=== PATIENT | male | born 1965 | race Caucasian/White ===

== ENCOUNTER → 2016-07-30 | Outpatient (REF) | payer OTHER | LOC: M SFHCLACO 07:59 | PROVIDERS: ATTEND Physician Assistant | DX: R73.9 Hyperglycemia, unspecified (principal) ==

== ENCOUNTER 2016-08-15 17:14 | Emergency (ER) | payer OTHER ==
[2016-08-15] MEDS ORDERED: ONDANSETRON 4 MG ORAL DISINTEGRATING TAB (S0181) As Ordered ONE (18:17)
[2016-08-15] MEDS ORDERED: AUGMENTIN 875 MG TAB As Ordered ONE (18:17)
[2016-08-15] MEDS ORDERED: LORATADINE 10 MG TAB As Ordered ONE (18:18)
[2016-08-15] MEDS ORDERED: OXYMETAZOLINE NASAL SPRAY (AFRIN) As Ordered ONE (18:18)
--- NOTE | 2016-08-15 18:54 | EDDOCDS ---
Nurse's Notes [facility] Name: Brennan Cruz Age: 51 yrs Sex: Male : 1965 Arrival Date: 08/15/2016 Time: 17:14 Bed PR Private MD: Megan Hamm PA-C Diagnosis: Acute sinusitis;Acute serous otitis media, bilateral Presentation: 08/15 17:29 Presenting complaint: states: pt has been c/o dizziness with eyes open since 1529. ead Also states pt has been c/o ear pain all week. Pt holding head and keeping eyes closed in triage. Adult Sepsis Screening: The patient does not have new or worsening altered mentation. Patient's respiratory rate is less than 22. Systolic blood pressure is greater than 100. Patient has a qSOFA score of 0- Negative Sepsis Screen. Suicide/Homicide risk assessment- the patient denies having any suicidal and/or homicidal ideations and does not present with any other emotional, behavioral or mental health complaints. Status: Patient is not a director of cardiopulmonary services or dependent. Transition of care: patient was not received from another setting of care. 17:29 Acuity: POOJA Level 3 ead 17:29 Method Of Arrival: Wheelchair ead Triage Assessment: 17:34 General: Appears in no apparent distress, uncomfortable, Behavior is cooperative. Pain: ead Denies pain. HIV screening NA for this visit Offered previously. Neurological: Reports dizziness. EENT: Reports pain in right ear and left ear. Derm: Skin is pink, warm & dry. 17:34 Cardiovascular: Chest pain is denied. Respiratory: Denies shortness of breath. ead Historical: - Allergies: no known allergies; - Home Meds: 1. losartan 50 mg oral tab 1.5 tabs once daily 2. Cardizem 240 mg oral tab once daily 3. Fish Oil 1,000 mg oral cap twice a day 4. Albuterol Inhl as needed 5. omeprazole 20 mg Oral cpDR once daily 6. Drisdol 50,000 unit Oral cap every other week 7. Flonase Allergy Relief 50 mcg/actuation nasal spsn once daily 8. Tylenol 325 mg Oral tab 2 tabs as needed 9. Vitamin C 500 mg Oral TbER daily 10. turmeric (bulk) miscellaneous daily - PMHx: Hypertension; hyperlipidemia; exercise induced asthma; esophageal reflux; mild depressive disorder; Osteoarthritis; insomnia; - PSHx: Carpal Tunnel Repair; - Social history: Smoking status: Patient states was never smoker of tobacco. No barriers to communication noted, The patient speaks fluent Hebrew, Speaks appropriately for age. - Family history: Not pertinent. - : The pt / caregiver states he / she is not on anticoagulants. Home medication list is obtained from family members. - Exposure Risk Screening:: None identified. Screenin:25 Screening information is obtained from the patient. Fall risk: At risk due to ck1 dizziness. The following interventions are performed due to a positive Fall Risk Screen: Fall Risk is added to Special Handling on the patient Summary Screen. A Fall Risk Bracelet was applied to the patient. Side Rails are placed in the up position. A Call Medrano is given with instruction to call for help when getting out of bed. Fall Alert bracelet is placed on the patient. Assistance ADL's: requires no assistance with activities of daily living. Abuse/DV Screen: The patient / caregiver reports he/she is: not in a situation that causes fear, pain or injury. Nutritional screening: No deficits noted. Advance Directives: Currently, there is no health care proxy. home support is adequate. Assessment: 18:24 General: Appears in no apparent distress, comfortable, Behavior is appropriate for age, ck1 cooperative. Pain: Denies pain. Neurological: Level of Consciousness is awake, alert, Oriented to person, place, time, Reports dizziness. Cardiovascular: No deficits noted. Respiratory: Airway is patent Respiratory effort is even, unlabored, Respiratory pattern is regular, symmetrical. GI: No deficits noted. Derm: Skin is pink, warm & dry. Musculoskeletal: No deficits noted. 18:53 General: Appears in no apparent distress, comfortable, Behavior is appropriate for age, ck1 cooperative. Pain: Denies pain. Neurological: Level of Consciousness is awake, alert, obeys commands, Oriented to person, place, time, Denies dizziness. Cardiovascular: No deficits noted. Respiratory: Respiratory effort is unlabored, Respiratory pattern is regular, symmetrical. GI: No deficits noted. Derm: Skin is pink, warm & dry. Vital Signs: 17:16 BP 114 / 65; Pulse 68; Resp 18 S; Temp 96.5(O); Pulse Ox 95% on R/A; Weight 99.79 kg gr2 (R); Height 5 ft. 10 in. (177.80 cm) (R); Pain 2/10; 18:52 BP 135 / 83; Pulse 60; Resp 18; Temp 97.4(TE); Pulse Ox 98% on R/A; Pain 0/10; ck1 17:16 Body Mass Index 31.57 (99.79 kg, 177.80 cm) gr2 Vitals: 17:16 Log In Time: August 15, 2016 at 17:16. gr2 ED Course: 17:16 Patient visited by Melvin Marino. gr2 17:16 Megan Hamm is Private Physician. gr2 17:16 Patient moved to Waiting gr2 17:18 Patient visited by Melvin Marino. gr2 17:18 Patient moved to Pre RCE gr2 17:30 Triage Initiated ead 17:36 Patient moved to Triage 3 rs6 17:49 Patient visited by Awilda Chiu RN. ck1 18:02 Concha Lang PA-C is PHCP. ef1 18:02 Lisa Mobley MD is Attending Physician. ef1 18:02 Patient visited by Concha Lang PA-C. ef1 18:16 Patient moved to PR2 / 26 jrd 18:25 The patient / caregiver is instructed regarding the plan of care and ED course. ck1 18:25 No IV's were initiated during this patient's visit. No procedures done that require ck1 assistance. 18:38 Patient visited by Concha Lang PA-C. ef1 18:38 Megan Hamm is Referral Physician. ef1 Administered Medications: 18:23 Drug: Ondansetron ODT 4 mg [ondansetron 4 mg disintegrating tablet (1 tabs)] Route: PO; ck1 18:24 Drug: Oxymetazoline 2 sprays [oxymetazoline 0.05 % nasal spray (2 sprays)] Route: ck1 Intranasal; Site: both nares; 18:24 Drug: Loratadine 10 mg [loratadine 10 mg tablet (1 tabs)] Route: PO; ck1 18:24 Drug: Amoxicillin-Clavulanate 1 tabs [amoxicillin 875 mg-potassium clavulanate 125 mg ck1 tablet (1 tabs)] Route: PO; Order Results: There are currently no results for this order. Outcome: 18:38 Discharge ordered by Provider. ef1 18:52 Discharge Assessment: Patient awake, alert and oriented x 3. No cognitive and/or ck1 functional deficits noted. Patient verbalized understanding of disposition instructions. patient administered narcotics - no. The following High Risk Discharge criteria are identified: None. Discharged to home ambulatory, with significant other. Condition: stable. Discharge instructions given to patient, Instructed on discharge instructions, follow up and referral plans. medication usage, Demonstrated understanding of instructions, medications, Pt was receptive of discharge instructions/ teaching. Prescriptions given X 5. No special radiology studies were completed. Property :Personal belongings accompany Pt. 18:53 Patient left the ED. ck1 Signatures: Awilda Chiu,RN RN ck1 Concha Lang, PA-C PA-C ef1 Melvin Marino gr2 Amanda Miller,MAGGI RN Angel Rand, INSTRUCTOR BRIDGE INSTRUCTOR BRIDGE jrd Liana Seaman, INSTRUCTOR BRIDGE INSTRUCTOR BRIDGE rs6 [facility]
--- NOTE | 2016-08-15 18:54 | EDDOCDS ---
Physician Documentation [facility] Name: Brennan Cruz Age: 51 yrs Sex: Male : 1965 Arrival Date: 08/15/2016 Time: 17:14 Bed PR Private MD: Megan Hamm PA-C Disposition: 08/15/16 18:38 Discharged to Home/Self Care. Impression: Acute sinusitis, Acute serous otitis media, bilateral. - Condition is Stable. - Discharge Instructions: Otitis Media, Adult, Ccvk-[id number], Sinusitis, [id number]-[id number]. - Prescriptions for Augmentin 875- 125 mg Oral Tablet - take 1 tablet by ORAL route every 12 hours for 10 days; 20 tablet. Claritin 10 mg Oral Tablet - take 1 tablet by ORAL route once daily As needed; 30 tablet. Afrin (oxymetazoline) 0.05 % Nasal Aerosol, [place] - spray 2 spray by INTRANASAL route 2 times per day; 1 Container. ZOFRAN ODT 4 mg - dissolve 1 tablet by ORAL route 4 times per day As needed do not chew, do not swallow whole; 10 tablet. Mucinex 600 mg - take 1 tablet by ORAL route 2 times per day; 30 tablet. - Medication Reconciliation, Local Pharmacy Hours form. - Follow up: Megan Hamm; When: 1 - 2 days; Reason: Recheck today's complaints, Continuance of care. Follow up: Emergency Department; Reason: Worsening of conditions. - Problem is new. - Symptoms have improved. Historical: - Allergies: no known allergies; - Home Meds: 1. losartan 50 mg oral tab 1.5 tabs once daily 2. Cardizem 240 mg oral tab once daily 3. Fish Oil 1,000 mg oral cap twice a day 4. Albuterol Inhl as needed 5. omeprazole 20 mg Oral cpDR once daily 6. Drisdol 50,000 unit Oral cap every other week 7. Flonase Allergy Relief 50 mcg/actuation nasal spsn once daily 8. Tylenol 325 mg Oral tab 2 tabs as needed 9. Vitamin C 500 mg Oral TbER daily 10. turmeric (bulk) miscellaneous daily - PMHx: Hypertension; hyperlipidemia; exercise induced asthma; esophageal reflux; mild depressive disorder; Osteoarthritis; insomnia; - PSHx: Carpal Tunnel Repair; - Social history: Smoking status: Patient states was never smoker of tobacco. No barriers to communication noted, The patient speaks fluent Hebrew, Speaks appropriately for age. - Family history: Not pertinent. - : The pt / caregiver states he / she is not on anticoagulants. Home medication list is obtained from family members. - Exposure Risk Screening:: None identified. Vital Signs: 08/15 17:16 BP 114 / 65; Pulse 68; Resp 18 S; Temp 96.5(O); Pulse Ox 95% on R/A; Weight 99.79 kg / gr2 220 lbs (R); Height 5 ft. 10 in. (177.80 cm) (R); Pain 2/10; 18:52 BP 135 / 83; Pulse 60; Resp 18; Temp 97.4(TE); Pulse Ox 98% on R/A; Pain 0/10; ck1 17:16 Body Mass Index 31.57 (99.79 kg, 177.80 cm) gr2 MDM: 18:13 Oxymetazoline [place] 0.05 % 2 sprays Intranasal once; Both nostrils ordered. ef1 18:13 Loratadine 10 mg PO once ordered. ef1 18:13 Amoxicillin-Clavulanate 875 mg 1 tabs PO once ordered. ef1 18:16 Ondansetron ODT Oral Disintegrating Tablet 4 mg PO once ordered. ef1 Administered Medications: 18:23 Drug: Ondansetron ODT 4 mg [ondansetron 4 mg disintegrating tablet (1 tabs)] Route: PO; ck1 18:24 Drug: Oxymetazoline 2 sprays [oxymetazoline 0.05 % nasal spray (2 sprays)] Route: ck1 Intranasal; Site: both nares; 18:24 Drug: Loratadine 10 mg [loratadine 10 mg tablet (1 tabs)] Route: PO; ck1 18:24 Drug: Amoxicillin-Clavulanate 1 tabs [amoxicillin 875 mg-potassium clavulanate 125 mg ck1 tablet (1 tabs)] Route: PO; Signatures: Awilda ChiuRN RN ck1 Concha Lang PA-C PAOz ef1 Amanda Miller RN RN ead MTDD
--- NOTE | 2016-08-17 19:54 | EDDOCDS ---
Physician Documentation [facility] Name: Brennan Cruz Age: 51 yrs Sex: Male : 1965 Arrival Date: 08/15/2016 Time: 17:14 Bed PR Private MD: Megan Hamm PA-C Disposition: 08/15/16 18:38 Discharged to Home/Self Care. Impression: Acute sinusitis, Acute serous otitis media, bilateral. - Condition is Stable. - Discharge Instructions: Otitis Media, Adult, [id number], Sinusitis, Wusy-lx-[id number]. - Prescriptions for Augmentin 875- 125 mg Oral Tablet - take 1 tablet by ORAL route every 12 hours for 10 days; 20 tablet. Claritin 10 mg Oral Tablet - take 1 tablet by ORAL route once daily As needed; 30 tablet. Afrin (oxymetazoline) 0.05 % Nasal Aerosol, [place] - spray 2 spray by INTRANASAL route 2 times per day; 1 Container. ZOFRAN ODT 4 mg - dissolve 1 tablet by ORAL route 4 times per day As needed do not chew, do not swallow whole; 10 tablet. Mucinex 600 mg - take 1 tablet by ORAL route 2 times per day; 30 tablet. - Medication Reconciliation, Local Pharmacy Hours form. - Follow up: Megan Hamm; When: 1 - 2 days; Reason: Recheck today's complaints, Continuance of care. Follow up: Emergency Department; Reason: Worsening of conditions. - Problem is new. - Symptoms have improved. Historical: - Allergies: no known allergies; - Home Meds: 1. losartan 50 mg oral tab 1.5 tabs once daily 2. Cardizem 240 mg oral tab once daily 3. Fish Oil 1,000 mg oral cap twice a day 4. Albuterol Inhl as needed 5. omeprazole 20 mg Oral cpDR once daily 6. Drisdol 50,000 unit Oral cap every other week 7. Flonase Allergy Relief 50 mcg/actuation nasal spsn once daily 8. Tylenol 325 mg Oral tab 2 tabs as needed 9. Vitamin C 500 mg Oral TbER daily 10. turmeric (bulk) miscellaneous daily - PMHx: Hypertension; hyperlipidemia; exercise induced asthma; esophageal reflux; mild depressive disorder; Osteoarthritis; insomnia; - PSHx: Carpal Tunnel Repair; - Social history: Smoking status: Patient states was never smoker of tobacco. No barriers to communication noted, The patient speaks fluent Turkmen, Speaks appropriately for age. - Family history: Not pertinent. - : The pt / caregiver states he / she is not on anticoagulants. Home medication list is obtained from family members. - Exposure Risk Screening:: None identified. Vital Signs: 08/15 17:16 BP 114 / 65; Pulse 68; Resp 18 S; Temp 96.5(O); Pulse Ox 95% on R/A; Weight 99.79 kg / gr2 220 lbs (R); Height 5 ft. 10 in. (177.80 cm) (R); Pain 2/10; 18:52 BP 135 / 83; Pulse 60; Resp 18; Temp 97.4(TE); Pulse Ox 98% on R/A; Pain 0/10; ck1 17:16 Body Mass Index 31.57 (99.79 kg, 177.80 cm) gr2 MDM: 18:13 Oxymetazoline [place] 0.05 % 2 sprays Intranasal once; Both nostrils ordered. ef1 18:13 Loratadine 10 mg PO once ordered. ef1 18:13 Amoxicillin-Clavulanate 875 mg 1 tabs PO once ordered. ef1 18:16 Ondansetron ODT Oral Disintegrating Tablet 4 mg PO once ordered. ef1 08/16 10:42 T-Sheet-- Draft Copy was scanned into [employer] and attached to record. gb Administered Medications: 08/15 18:23 Drug: Ondansetron ODT 4 mg [ondansetron 4 mg disintegrating tablet (1 tabs)] Route: PO; ck1 18:24 Drug: Oxymetazoline 2 sprays [oxymetazoline 0.05 % nasal spray (2 sprays)] Route: ck1 Intranasal; Site: both nares; 18:24 Drug: Loratadine 10 mg [loratadine 10 mg tablet (1 tabs)] Route: PO; ck1 18:24 Drug: Amoxicillin-Clavulanate 1 tabs [amoxicillin 875 mg-potassium clavulanate 125 mg ck1 tablet (1 tabs)] Route: PO; Signatures: Adilene Fuchs, Reg Reg gb Awilda Chiu,MAGGI RN ck1 Concha Lang PA-C PAKaiserC ef1 Amanda Miller,RN RN ead The chart was reviewed and I authenticate all verbal orders and agree with the evaluation and treatment provided.Attachments: 08/16 10:42 T-Sheet-- Draft Copy gb Chart Complete MTDD
--- NOTE | 2016-08-17 19:54 | EDDOCDS ---
Nurse's Notes [facility] Name: Brennan Cruz Age: 51 yrs Sex: Male : 1965 Arrival Date: 08/15/2016 Time: 17:14 Bed PR Private MD: Megan Hamm PA-C Diagnosis: Acute sinusitis;Acute serous otitis media, bilateral Presentation: 08/15 17:29 Presenting complaint: states: pt has been c/o dizziness with eyes open since 1529. ead Also states pt has been c/o ear pain all week. Pt holding head and keeping eyes closed in triage. Adult Sepsis Screening: The patient does not have new or worsening altered mentation. Patient's respiratory rate is less than 22. Systolic blood pressure is greater than 100. Patient has a qSOFA score of 0- Negative Sepsis Screen. Suicide/Homicide risk assessment- the patient denies having any suicidal and/or homicidal ideations and does not present with any other emotional, behavioral or mental health complaints. Status: Patient is not a food service or dependent. Transition of care: patient was not received from another setting of care. 17:29 Acuity: POOJA Level 3 ead 17:29 Method Of Arrival: Wheelchair ead Triage Assessment: 17:34 General: Appears in no apparent distress, uncomfortable, Behavior is cooperative. Pain: ead Denies pain. HIV screening NA for this visit Offered previously. Neurological: Reports dizziness. EENT: Reports pain in right ear and left ear. Derm: Skin is pink, warm & dry. 17:34 Cardiovascular: Chest pain is denied. Respiratory: Denies shortness of breath. ead Historical: - Allergies: no known allergies; - Home Meds: 1. losartan 50 mg oral tab 1.5 tabs once daily 2. Cardizem 240 mg oral tab once daily 3. Fish Oil 1,000 mg oral cap twice a day 4. Albuterol Inhl as needed 5. omeprazole 20 mg Oral cpDR once daily 6. Drisdol 50,000 unit Oral cap every other week 7. Flonase Allergy Relief 50 mcg/actuation nasal spsn once daily 8. Tylenol 325 mg Oral tab 2 tabs as needed 9. Vitamin C 500 mg Oral TbER daily 10. turmeric (bulk) miscellaneous daily - PMHx: Hypertension; hyperlipidemia; exercise induced asthma; esophageal reflux; mild depressive disorder; Osteoarthritis; insomnia; - PSHx: Carpal Tunnel Repair; - Social history: Smoking status: Patient states was never smoker of tobacco. No barriers to communication noted, The patient speaks fluent Maori, Speaks appropriately for age. - Family history: Not pertinent. - : The pt / caregiver states he / she is not on anticoagulants. Home medication list is obtained from family members. - Exposure Risk Screening:: None identified. Screenin:25 Screening information is obtained from the patient. Fall risk: At risk due to ck1 dizziness. The following interventions are performed due to a positive Fall Risk Screen: Fall Risk is added to Special Handling on the patient Summary Screen. A Fall Risk Bracelet was applied to the patient. Side Rails are placed in the up position. A Call Medrano is given with instruction to call for help when getting out of bed. Fall Alert bracelet is placed on the patient. Assistance ADL's: requires no assistance with activities of daily living. Abuse/DV Screen: The patient / caregiver reports he/she is: not in a situation that causes fear, pain or injury. Nutritional screening: No deficits noted. Advance Directives: Currently, there is no health care proxy. home support is adequate. Assessment: 18:24 General: Appears in no apparent distress, comfortable, Behavior is appropriate for age, ck1 cooperative. Pain: Denies pain. Neurological: Level of Consciousness is awake, alert, Oriented to person, place, time, Reports dizziness. Cardiovascular: No deficits noted. Respiratory: Airway is patent Respiratory effort is even, unlabored, Respiratory pattern is regular, symmetrical. GI: No deficits noted. Derm: Skin is pink, warm & dry. Musculoskeletal: No deficits noted. 18:53 General: Appears in no apparent distress, comfortable, Behavior is appropriate for age, ck1 cooperative. Pain: Denies pain. Neurological: Level of Consciousness is awake, alert, obeys commands, Oriented to person, place, time, Denies dizziness. Cardiovascular: No deficits noted. Respiratory: Respiratory effort is unlabored, Respiratory pattern is regular, symmetrical. GI: No deficits noted. Derm: Skin is pink, warm & dry. Vital Signs: 17:16 BP 114 / 65; Pulse 68; Resp 18 S; Temp 96.5(O); Pulse Ox 95% on R/A; Weight 99.79 kg gr2 (R); Height 5 ft. 10 in. (177.80 cm) (R); Pain 2/10; 18:52 BP 135 / 83; Pulse 60; Resp 18; Temp 97.4(TE); Pulse Ox 98% on R/A; Pain 0/10; ck1 17:16 Body Mass Index 31.57 (99.79 kg, 177.80 cm) gr2 Vitals: 17:16 Log In Time: August 15, 2016 at 17:16. gr2 ED Course: 17:16 Patient visited by Melvin Marino. gr2 17:16 Megan Hamm is Private Physician. gr2 17:16 Patient moved to Waiting gr2 17:18 Patient visited by Melvin Marino. gr2 17:18 Patient moved to Pre RCE gr2 17:30 Triage Initiated ead 17:36 Patient moved to Triage 3 rs6 17:49 Patient visited by Awilda Chiu RN. ck1 18:02 Concha Lang PA-C is PHCP. ef1 18:02 Lisa Mobley MD is Attending Physician. ef1 18:02 Patient visited by Concha Lang PA-C. ef1 18:16 Patient moved to PR2 / 26 jrd 18:25 The patient / caregiver is instructed regarding the plan of care and ED course. ck1 18:25 No IV's were initiated during this patient's visit. No procedures done that require ck1 assistance. 18:38 Patient visited by Concha Lang PA-C. ef1 18:38 Megan Hmam is Referral Physician. ef1 08/16 10:42 T-Sheet-- Draft Copy was scanned into [employer] and attached to record. gb Administered Medications: 08/15 18:23 Drug: Ondansetron ODT 4 mg [ondansetron 4 mg disintegrating tablet (1 tabs)] Route: PO; ck1 18:24 Drug: Oxymetazoline 2 sprays [oxymetazoline 0.05 % nasal spray (2 sprays)] Route: ck1 Intranasal; Site: both nares; 18:24 Drug: Loratadine 10 mg [loratadine 10 mg tablet (1 tabs)] Route: PO; ck1 18:24 Drug: Amoxicillin-Clavulanate 1 tabs [amoxicillin 875 mg-potassium clavulanate 125 mg ck1 tablet (1 tabs)] Route: PO; Order Results: There are currently no results for this order. Outcome: 18:38 Discharge ordered by Provider. ef1 18:52 Discharge Assessment: Patient awake, alert and oriented x 3. No cognitive and/or ck1 functional deficits noted. Patient verbalized understanding of disposition instructions. patient administered narcotics - no. The following High Risk Discharge criteria are identified: None. Discharged to home ambulatory, with significant other. Condition: stable. Discharge instructions given to patient, Instructed on discharge instructions, follow up and referral plans. medication usage, Demonstrated understanding of instructions, medications, Pt was receptive of discharge instructions/ teaching. Prescriptions given X 5. No special radiology studies were completed. Property :Personal belongings accompany Pt. 18:53 Patient left the ED. ck1 Signatures: Adilene Fuchs, Reg Reg gb Awilda ChiuRN RN ck1 Concha Lang, PA-C PA-C ef1 Melvin Marino 2 Amanda Miller,RN RN Angel Rand, SENIOR ANALYST SENIOR ANALYST jrd Liana Seaman, SENIOR ANALYST SENIOR ANALYST rs6 Chart Complete [facility]
--- NOTE | 2016-08-17 19:54 | EDDOCDS ---
Physician Documentation [facility] Name: Brennan Cruz Age: 51 yrs Sex: Male : 1965 Arrival Date: 08/15/2016 Time: 17:14 Bed PR Private MD: Megan Hamm PA-C Disposition: 08/15/16 18:38 Discharged to Home/Self Care. Impression: Acute sinusitis, Acute serous otitis media, bilateral. - Condition is Stable. - Discharge Instructions: Otitis Media, Adult, Etes-pc-Umrv, Sinusitis, Ufdz-oh-Elmj. - Prescriptions for Augmentin 875- 125 mg Oral Tablet - take 1 tablet by ORAL route every 12 hours for 10 days; 20 tablet. Claritin 10 mg Oral Tablet - take 1 tablet by ORAL route once daily As needed; 30 tablet. Afrin (oxymetazoline) 0.05 % Nasal Aerosol, [place] - spray 2 spray by INTRANASAL route 2 times per day; 1 Container. ZOFRAN ODT 4 mg - dissolve 1 tablet by ORAL route 4 times per day As needed do not chew, do not swallow whole; 10 tablet. Mucinex 600 mg - take 1 tablet by ORAL route 2 times per day; 30 tablet. - Medication Reconciliation, Local Pharmacy Hours form. - Follow up: Megan Hamm; When: 1 - 2 days; Reason: Recheck today's complaints, Continuance of care. Follow up: Emergency Department; Reason: Worsening of conditions. - Problem is new. - Symptoms have improved. Historical: - Allergies: no known allergies; - Home Meds: 1. losartan 50 mg oral tab 1.5 tabs once daily 2. Cardizem 240 mg oral tab once daily 3. Fish Oil 1,000 mg oral cap twice a day 4. Albuterol Inhl as needed 5. omeprazole 20 mg Oral cpDR once daily 6. Drisdol 50,000 unit Oral cap every other week 7. Flonase Allergy Relief 50 mcg/actuation nasal spsn once daily 8. Tylenol 325 mg Oral tab 2 tabs as needed 9. Vitamin C 500 mg Oral TbER daily 10. turmeric (bulk) miscellaneous daily - PMHx: Hypertension; hyperlipidemia; exercise induced asthma; esophageal reflux; mild depressive disorder; Osteoarthritis; insomnia; - PSHx: Carpal Tunnel Repair; - Social history: Smoking status: Patient states was never smoker of tobacco. No barriers to communication noted, The patient speaks fluent Polish, Speaks appropriately for age. - Family history: Not pertinent. - : The pt / caregiver states he / she is not on anticoagulants. Home medication list is obtained from family members. - Exposure Risk Screening:: None identified. Vital Signs: 08/15 17:16 BP 114 / 65; Pulse 68; Resp 18 S; Temp 96.5(O); Pulse Ox 95% on R/A; Weight 99.79 kg / gr2 220 lbs (R); Height 5 ft. 10 in. (177.80 cm) (R); Pain 2/10; 18:52 BP 135 / 83; Pulse 60; Resp 18; Temp 97.4(TE); Pulse Ox 98% on R/A; Pain 0/10; ck1 17:16 Body Mass Index 31.57 (99.79 kg, 177.80 cm) gr2 MDM: 18:13 Oxymetazoline [place] 0.05 % 2 sprays Intranasal once; Both nostrils ordered. ef1 18:13 Loratadine 10 mg PO once ordered. ef1 18:13 Amoxicillin-Clavulanate 875 mg 1 tabs PO once ordered. ef1 18:16 Ondansetron ODT Oral Disintegrating Tablet 4 mg PO once ordered. ef1 08/16 10:42 T-Sheet-- Draft Copy was scanned into [employer] and attached to record. gb Administered Medications: 08/15 18:23 Drug: Ondansetron ODT 4 mg [ondansetron 4 mg disintegrating tablet (1 tabs)] Route: PO; ck1 18:24 Drug: Oxymetazoline 2 sprays [oxymetazoline 0.05 % nasal spray (2 sprays)] Route: ck1 Intranasal; Site: both nares; 18:24 Drug: Loratadine 10 mg [loratadine 10 mg tablet (1 tabs)] Route: PO; ck1 18:24 Drug: Amoxicillin-Clavulanate 1 tabs [amoxicillin 875 mg-potassium clavulanate 125 mg ck1 tablet (1 tabs)] Route: PO; Signatures: Adilene Fuchs, Reg Reg gb Awilda Chiu,MAGGI RN ck1 Concha Lang PA-C PAKaiserC ef1 Amanda Miller,RN RN ead The chart was reviewed and I authenticate all verbal orders and agree with the evaluation and treatment provided.Attachments: 08/16 10:42 T-Sheet-- Draft Copy gb Chart Complete MTDD
== END 2016-08-15 18:53 | disposition home or self-care (01) ==
LOC: M ED 17:14
DX: J01.90 Acute sinusitis, unspecified (principal); H66.93 Otitis media, unspecified, bilateral; I10 Essential (primary) hypertension; E78.5 Hyperlipidemia, unspecified; J45.990 Exercise induced bronchospasm; K21.9 Gastro-esophageal reflux disease without esophagitis; F32.0 Major depressive disorder, single episode, mild; M19.90 Unspecified osteoarthritis, unspecified site; G47.00 Insomnia, unspecified; Z79.51 Long term (current) use of inhaled steroids; Z79.899 Other long term (current) drug therapy

== ENCOUNTER → 2016-09-27 | Outpatient (REF) | payer OTHER | LOC: M SFHCLACO 15:38 | PROVIDERS: ATTEND Physician Assistant | DX: D14.0 Benign neoplasm of middle ear, nasal cavity and accessory sinuses (principal) ==

== ENCOUNTER → 2017-01-21 | Outpatient (REF) | payer OTHER ==
[2017-01-21 16:04] LABS: ALBUMIN/GLOBULIN RATIO 1.18 (1.00-1.93); ALKALINE PHOSPHATASE 64 U/L (45-117); ALT/SGPT 52 U/L (12-78); ANION GAP 5 MEQ/L (8-16); AST/SGOT 23 U/L (15-37); BILIRUBIN,TOTAL 0.6 MG/DL (0.2-1.0); BLOOD UREA NITROGEN 14 MG/DL (7-18); CALCIUM LEVEL 9.1 MG/DL (8.5-10.1); CARBON DIOXIDE LEVEL 30 MEQ/L (21-32); CHLORIDE LEVEL 106 MEQ/L (98-107); CHOLESTEROL LEVEL 155 MG/DL (<200); GLOMERULAR FILTRATION RATE > 60.0 (>56); GLUCOSE, FASTING 109 MG/DL (70-105); POTASSIUM SERUM 4.5 MEQ/L (3.5-5.1); SODIUM LEVEL 141 MEQ/L (136-145); TOTAL PROTEIN 7.4 GM/DL (6.4-8.2); TRIGLYCERIDES LEVEL 225 MG/DL (<150)
== END ==
LOC: M SFHCLACO 08:32
PROVIDERS: ATTEND Physician Assistant
DX: I10 Essential (primary) hypertension (principal); E78.2 Mixed hyperlipidemia; E55.9 Vitamin D deficiency, unspecified

== ENCOUNTER → 2017-07-24 | Outpatient (REF) | payer OTHER ==
[2017-07-24 15:18] LABS: ALBUMIN/GLOBULIN RATIO 1.21 (1.00-1.93); ALKALINE PHOSPHATASE 72 U/L (45-117); ALT/SGPT 77 U/L (12-78); ANION GAP 8 MEQ/L (8-16); AST/SGOT 35 U/L (7-37); BILIRUBIN,TOTAL 0.4 MG/DL (0.2-1.0); BLOOD UREA NITROGEN 17 MG/DL (7-18); CALCIUM LEVEL 8.5 MG/DL (8.5-10.1); CARBON DIOXIDE LEVEL 29 MEQ/L (21-32); CHLORIDE LEVEL 105 MEQ/L (98-107); CHOLESTEROL LEVEL 170 MG/DL (<200); CREATININE FOR GFR 0.89 MG/DL (0.70-1.30); GLOMERULAR FILTRATION RATE > 60.0 (>56); GLUCOSE, FASTING 125 MG/DL (70-105); PSA SCREENING 7.84 NG/ML (< 4.0); SODIUM LEVEL 142 MEQ/L (136-145); TOTAL PROTEIN 7.3 GM/DL (6.4-8.2); TRIGLYCERIDES LEVEL 296 MG/DL (<150)
== END ==
LOC: M SFHCLACO 08:02
DX: I10 Essential (primary) hypertension (principal); E78.2 Mixed hyperlipidemia; Z12.5 Encounter for screening for malignant neoplasm of prostate; E55.9 Vitamin D deficiency, unspecified
CPT/HCPCS: 80053

== ENCOUNTER → 2018-01-20 | Outpatient (REF) | payer OTHER ==
[2018-01-20 15:24] LABS: ALBUMIN/GLOBULIN RATIO 1.21 (1.00-1.93); ALKALINE PHOSPHATASE 59 U/L (45-117); ALT/SGPT 77 U/L (12-78); ANION GAP 8 MEQ/L (8-16); AST/SGOT 35 U/L (7-37); BILIRUBIN,TOTAL 0.7 MG/DL (0.2-1.0); BLOOD UREA NITROGEN 15 MG/DL (7-18); CALCIUM LEVEL 8.8 MG/DL (8.5-10.1); CARBON DIOXIDE LEVEL 27 MEQ/L (21-32); CHLORIDE LEVEL 107 MEQ/L (98-107); CHOLESTEROL LEVEL 168 MG/DL (<200); CHOLESTEROL RISK RATIO 4.941 (<5); GLOMERULAR FILTRATION RATE > 60.0 (>56); GLUCOSE, FASTING 105 MG/DL (70-100); HDL CHOLESTEROL 34 MG/DL (>40); LDL CHOLESTEROL 110.6 MG/DL (<100); NON-HDL-C 134 MG/DL; POTASSIUM SERUM 4.2 MEQ/L (3.5-5.1); SODIUM LEVEL 142 MEQ/L (136-145); TOTAL PROTEIN 7.3 GM/DL (6.4-8.2); TRIGLYCERIDES LEVEL 117 MG/DL (<150)
[2018-01-20 15:27] LABS: ESTIMATED AVERAGE GLUCOSE 126 MG/DL (60-110)
[2018-01-20 15:28] LABS: TOTAL 25(OH) VITAMIN D 47.5 NG/ML (30.0-100.0)
== END ==
LOC: M SFHCLACO 08:15
DX: I10 Essential (primary) hypertension (principal); E78.2 Mixed hyperlipidemia; R73.9 Hyperglycemia, unspecified; E55.9 Vitamin D deficiency, unspecified

== ENCOUNTER → 2018-02-23 | Outpatient (CLI) | payer OTHER ==
[2018-02-23 20:30] LABS: PSA SCREENING 7.51 NG/ML (< 4.0)
== END ==
LOC: M ADAMS 15:57
DX: R97.20 Elevated prostate specific antigen [PSA] (principal)
CPT/HCPCS: G0103

== ENCOUNTER → 2018-08-04 | Outpatient (REF) | payer OTHER ==
[2018-08-04 13:11] LABS: ALBUMIN 3.9 GM/DL (3.2-5.2); ALT/SGPT 77 U/L (12-78); BILIRUBIN,TOTAL 0.6 MG/DL (0.2-1.0); BLOOD UREA NITROGEN 18 MG/DL (7-18); CARBON DIOXIDE LEVEL 26 MEQ/L (21-32); CHLORIDE LEVEL 107 MEQ/L (98-107); CHOLESTEROL LEVEL 161 MG/DL (<200); CHOLESTEROL RISK RATIO 5.366 (<5); CREATININE FOR GFR 0.93 MG/DL (0.70-1.30); GLOMERULAR FILTRATION RATE > 60.0 (>56); GLUCOSE, FASTING 90 MG/DL (70-100); HDL CHOLESTEROL 30 MG/DL (>40); LDL CHOLESTEROL 87 MG/DL (<100); NON-HDL-C 131 MG/DL; POTASSIUM SERUM 3.7 MEQ/L (3.5-5.1); SODIUM LEVEL 140 MEQ/L (136-145); TOTAL 25(OH) VITAMIN D 50.7 NG/ML (30.0-100.0); TOTAL PROTEIN 6.9 GM/DL (6.4-8.2); TRIGLYCERIDES LEVEL 221 MG/DL (<150)
[2018-08-04 13:55] LABS: HEMOGLOBIN A1c 6.1 %
== END ==
LOC: M SFHCADAM 08:33
PROVIDERS: ATTEND Physician Assistant
DX: I10 Essential (primary) hypertension (principal); E78.2 Mixed hyperlipidemia; R73.9 Hyperglycemia, unspecified; E55.9 Vitamin D deficiency, unspecified

== ENCOUNTER → 2018-08-28 | Outpatient (REF) | payer OTHER | LOC: M LABDRWAD 12:32 | PROVIDERS: ATTEND Urology | DX: R97.20 Elevated prostate specific antigen [PSA] (principal) ==

== ENCOUNTER → 2018-09-23 | Outpatient (REF) | payer OTHER ==
[2018-09-23 20:01] LABS: BLOOD UREA NITROGEN 13 MG/DL (7-18); CREATININE FOR GFR 0.97 MG/DL (0.70-1.30); GLOMERULAR FILTRATION RATE > 60.0 (>56)
== END ==
LOC: M LABDRWAD 19:19
PROVIDERS: ATTEND Urology
DX: R97.20 Elevated prostate specific antigen [PSA] (principal); Z85.46 Personal history of malignant neoplasm of prostate

== ENCOUNTER → 2018-10-28 | Outpatient (REF) | payer OTHER | LOC: M SFHCPLAZ 10:19 | PROVIDERS: ATTEND Dermatology | DX: D22.61 Melanocytic nevi of right upper limb, including shoulder (principal); D22.62 Melanocytic nevi of left upper limb, including shoulder; D22.5 Melanocytic nevi of trunk; D22.4 Melanocytic nevi of scalp and neck ==

== ENCOUNTER → 2018-12-24 | Outpatient (REF) | payer OTHER | LOC: M SFHCPLAZ 09:45 | PROVIDERS: ATTEND Dermatology | DX: D23.61 Other benign neoplasm of skin of right upper limb, including shoulder (principal) ==

== ENCOUNTER → 2019-04-07 | Outpatient (REF) | payer OTHER | LOC: M LABDRWAD 19:17 | PROVIDERS: ATTEND Urology | DX: R97.20 Elevated prostate specific antigen [PSA] (principal) ==

== ENCOUNTER → 2019-05-11 | Outpatient (REF) | payer OTHER ==
[2019-05-11 20:08] LABS: ALT/SGPT 75 U/L (12-78); BILIRUBIN,TOTAL 0.6 MG/DL (0.2-1.0); BLOOD UREA NITROGEN 13 MG/DL (7-18); CALCIUM LEVEL 8.9 MG/DL (8.5-10.1); CARBON DIOXIDE LEVEL 30 MEQ/L (21-32); CHLORIDE LEVEL 106 MEQ/L (98-107); CHOLESTEROL LEVEL 155 MG/DL (<200); CREATININE FOR GFR 1.06 MG/DL (0.70-1.30); GLOMERULAR FILTRATION RATE > 60.0 (>56); GLUCOSE, FASTING 90 MG/DL (70-100); HDL CHOLESTEROL 31 MG/DL (>40); LDL CHOLESTEROL 81 MG/DL (<100); NON-HDL-C 124 MG/DL; POTASSIUM SERUM 3.8 MEQ/L (3.5-5.1); SODIUM LEVEL 141 MEQ/L (136-145); TOTAL PROTEIN 7.2 GM/DL (6.4-8.2); TRIGLYCERIDES LEVEL 217 MG/DL (<150)
[2019-05-11 20:30] LABS: HEMOGLOBIN A1c 6.1 %
== END ==
LOC: M SFHCADAM 15:40
PROVIDERS: ATTEND Physician Assistant
DX: I10 Essential (primary) hypertension (principal); E78.2 Mixed hyperlipidemia; R73.9 Hyperglycemia, unspecified; E55.9 Vitamin D deficiency, unspecified

== ENCOUNTER → 2019-12-07 | Outpatient (REF) | payer OTHER | LOC: M LABDRWAD 12:21 | PROVIDERS: ATTEND Urology | DX: R97.20 Elevated prostate specific antigen [PSA] (principal) ==

== ENCOUNTER → 2019-12-07 | Outpatient (REF) | payer OTHER ==
[2019-12-07 13:39] LABS: ALBUMIN 4.3 GM/DL (3.2-5.2); ALT/SGPT 64 U/L (12-78); BILIRUBIN,TOTAL 0.4 MG/DL (0.2-1.0); BLOOD UREA NITROGEN 15 MG/DL (7-18); CALCIUM LEVEL 9.1 MG/DL (8.5-10.1); CARBON DIOXIDE LEVEL 29 MEQ/L (21-32); CHLORIDE LEVEL 107 MEQ/L (98-107); CHOLESTEROL LEVEL 173 MG/DL (<200); CHOLESTEROL RISK RATIO 5.406 (<5); CREATININE FOR GFR 0.96 MG/DL (0.70-1.30); GLOMERULAR FILTRATION RATE > 60.0 (>56); GLUCOSE, FASTING 126 MG/DL (70-100); HDL CHOLESTEROL 32 MG/DL (>40); LDL CHOLESTEROL 107 MG/DL (<100); NON-HDL-C 141 MG/DL; POTASSIUM SERUM 4.2 MEQ/L (3.5-5.1); SODIUM LEVEL 141 MEQ/L (136-145); TOTAL PROTEIN 7.4 GM/DL (6.4-8.2); TRIGLYCERIDES LEVEL 170 MG/DL (<150)
[2019-12-07 16:03] LABS: HEMOGLOBIN A1c 6.3 %
[2019-12-09 00:10] LABS: Lyme Disease IgG/IgM Antibodie <0.91 ISR (0.00-0.90); Lyme Disease IgM Ab Quantitati <0.80 index (0.00-0.79)
== END ==
LOC: M SFHCADAM 08:48
PROVIDERS: ATTEND Physician Assistant
DX: I10 Essential (primary) hypertension (principal); E78.2 Mixed hyperlipidemia; R73.9 Hyperglycemia, unspecified; W57.XXXA Bitten or stung by nonvenomous insect and other nonvenomous arthropods, initial encounter

== ENCOUNTER → 2019-12-17 | Outpatient (CLI) | payer OTHER ==
--- NOTE | 2019-12-17 13:46 | REP ---
REASON: Pain. No trauma. No priors. There is minimal lateral compartmental marginal osteophytosis with tiny marginal osteophytes arising from the articular surface of the patella. The compartments are symmetric and well maintained. There is no fracture, dislocation, or subluxation. IMPRESSION: Minimal degenerative changes as described above. Electronically Signed by Maikel Rivera DO 12/17/2019 02:04 P
== END ==
LOC: M ADAMS 09:58
PROVIDERS: ATTEND Physician Assistant
DX: M25.561 Pain in right knee (principal); M17.11 Unilateral primary osteoarthritis, right knee

== ENCOUNTER → 2020-05-31 | Outpatient (REF) | payer OTHER ==
[2020-05-31 16:20] LABS: ALBUMIN 4.1 GM/DL (3.2-5.2); ALT/SGPT 75 U/L (12-78); BILIRUBIN,TOTAL 0.6 MG/DL (0.2-1.0); BLOOD UREA NITROGEN 15 MG/DL (7-18); CALCIUM LEVEL 9.2 MG/DL (8.5-10.1); CARBON DIOXIDE LEVEL 27 MEQ/L (21-32); CHLORIDE LEVEL 106 MEQ/L (98-107); CHOLESTEROL LEVEL 161 MG/DL (<200); CHOLESTEROL RISK RATIO 4.472 (<5); CREATININE FOR GFR 1.03 MG/DL (0.70-1.30); GLOMERULAR FILTRATION RATE > 60.0 (>56); GLUCOSE, FASTING 104 MG/DL (70-100); HDL CHOLESTEROL 36 MG/DL (>40); LDL CHOLESTEROL 98 MG/DL (<100); NON-HDL-C 125 MG/DL; SODIUM LEVEL 139 MEQ/L (136-145); TOTAL PROTEIN 7.6 GM/DL (6.4-8.2); TRIGLYCERIDES LEVEL 136 MG/DL (<150)
[2020-05-31 16:27] LABS: TOTAL 25(OH) VITAMIN D 47.2 NG/ML (30.0-100.0)
[2020-05-31 20:08] LABS: HEMOGLOBIN A1c 5.8 %
== END ==
LOC: M LABDRWAD 12:26
PROVIDERS: ATTEND Physician Assistant
DX: I10 Essential (primary) hypertension (principal); E78.2 Mixed hyperlipidemia; R73.9 Hyperglycemia, unspecified; Z12.5 Encounter for screening for malignant neoplasm of prostate; E55.9 Vitamin D deficiency, unspecified
CPT/HCPCS: 36415; 80053; 80061; 82306; 83036; G0103

== ENCOUNTER → 2020-06-12 | Outpatient (REF) | payer OTHER | LOC: M LABDRWAD 12:49 | PROVIDERS: ATTEND Urology | DX: R97.20 Elevated prostate specific antigen [PSA] (principal) ==

== ENCOUNTER → 2020-11-27 | Outpatient (CLI) | payer OTHER ==
--- NOTE | 2020-11-29 08:03 | ECGEPIP ---
[facility] Test Date: 2020-11-27 Pat Name: PARIS LANCASTER Department: Room: - Gender: Male [employer]: rf : 1965 Requested By: Reba Beavers Order Number: [id number] Reading MD: Viktor Nolasco Measurements Intervals [place] Rate: 86 P: 58 W[place]: 158 QRS: -27 QRSD: 90 T: 44 QT: 370 QTc: 442 Interpretive Statements normal sinus rhythm LA conduction disturbance? Left axis deviation - rule out prior IWMI Incomplete RIGHT BUNDLE BRANCH BLOCK with persistent S waves V5 and V6; body habitus versus pulmonary disease No prior tracing for comparison. Clincal correlation advised Electronically Signed on 11-29-2020 8:03:37 EDT by Viktor Nolasco
== END ==
LOC: M EKG 11:56
PROVIDERS: ATTEND Orthopaedic Surgery
DX: Z01.810 Encounter for preprocedural cardiovascular examination (principal)

== ENCOUNTER → 2020-11-28 | Outpatient (REF) | payer OTHER ==
[2020-11-28 14:09] LABS: ALT/SGPT 122 U/L (12-78); BILIRUBIN,TOTAL 0.7 MG/DL (0.2-1.0); BLOOD UREA NITROGEN 19 MG/DL (7-18); CALCIUM LEVEL 9.6 MG/DL (8.5-10.1); CARBON DIOXIDE LEVEL 27 MEQ/L (21-32); CHLORIDE LEVEL 105 MEQ/L (98-107); CHOLESTEROL LEVEL 161 MG/DL (<200); CHOLESTEROL RISK RATIO 4.236 (<5); CREATININE FOR GFR 1.02 MG/DL (0.70-1.30); GLOMERULAR FILTRATION RATE > 60.0 (>56); GLUCOSE, FASTING 120 MG/DL (70-100); HDL CHOLESTEROL 38 MG/DL (>40); LDL CHOLESTEROL 92 MG/DL (<100); NON-HDL-C 123 MG/DL; SODIUM LEVEL 140 MEQ/L (136-145); TOTAL 25(OH) VITAMIN D 41.9 NG/ML (30.0-100.0); TOTAL PROTEIN 7.3 GM/DL (6.4-8.2); TRIGLYCERIDES LEVEL 154 MG/DL (<150)
== END ==
LOC: M SFHCADAM 09:07
PROVIDERS: ATTEND Physician Assistant
DX: I10 Essential (primary) hypertension (principal); E78.2 Mixed hyperlipidemia; R73.9 Hyperglycemia, unspecified; E55.9 Vitamin D deficiency, unspecified

== ENCOUNTER → 2020-12-20 | Outpatient (REF) | payer OTHER | LOC: M LABDRWAD 12:16 | PROVIDERS: ATTEND Urology | DX: R97.20 Elevated prostate specific antigen [PSA] (principal) ==

== ENCOUNTER → 2021-02-12 | Outpatient (REF) | payer OTHER | LOC: M LAB REF 18:45 | PROVIDERS: ATTEND Physician Assistant | DX: L82.1 Other seborrheic keratosis (principal) ==

== ENCOUNTER → 2021-05-29 | Outpatient (REF) | payer OTHER ==
[2021-05-29 14:51] LABS: ALBUMIN 3.9 GM/DL (3.2-5.2); ALT/SGPT 66 U/L (12-78); BILIRUBIN,TOTAL 0.6 MG/DL (0.2-1.0); BLOOD UREA NITROGEN 13 MG/DL (7-18); CALCIUM LEVEL 9.3 MG/DL (8.5-10.1); CARBON DIOXIDE LEVEL 29 MEQ/L (21-32); CHLORIDE LEVEL 106 MEQ/L (98-107); CHOLESTEROL LEVEL 163 MG/DL (<200); CHOLESTEROL RISK RATIO 4.527 (<5); CREATININE FOR GFR 0.99 MG/DL (0.70-1.30); GLOMERULAR FILTRATION RATE > 60.0 (>56); GLUCOSE, FASTING 108 MG/DL (70-100); HDL CHOLESTEROL 36 MG/DL (>40); LDL CHOLESTEROL 92 MG/DL (<100); NON-HDL-C 127 MG/DL; SODIUM LEVEL 139 MEQ/L (136-145); TOTAL PROTEIN 7.4 GM/DL (6.4-8.2); TRIGLYCERIDES LEVEL 176 MG/DL (<150)
[2021-05-29 15:23] LABS: HEMOGLOBIN A1c 5.8 %
== END ==
LOC: M SFHCADAM 08:25
PROVIDERS: ATTEND Physician Assistant
DX: E78.2 Mixed hyperlipidemia (principal); I10 Essential (primary) hypertension; R73.9 Hyperglycemia, unspecified

== ENCOUNTER → 2021-06-28 | Outpatient (REF) | payer OTHER | LOC: M LABDRWAD 12:33 | PROVIDERS: ATTEND Urology | DX: R97.20 Elevated prostate specific antigen [PSA] (principal) ==

== ENCOUNTER → 2022-01-01 | Outpatient (CLI) | payer OTHER | LOC: M ADAMS 08:06 | PROVIDERS: ATTEND Urology | DX: R97.20 Elevated prostate specific antigen [PSA] (principal) ==

== ENCOUNTER → 2022-01-01 | Outpatient (REF) | payer OTHER ==
[2022-01-01 13:12] LABS: ALBUMIN 3.8 GM/DL (3.2-5.2); ALT/SGPT 59 U/L (12-78); BILIRUBIN,TOTAL 0.7 MG/DL (0.2-1.0); BLOOD UREA NITROGEN 13 MG/DL (7-18); CALCIUM LEVEL 9.3 MG/DL (8.5-10.1); CARBON DIOXIDE LEVEL 28 MEQ/L (21-32); CHLORIDE LEVEL 109 MEQ/L (98-107); CHOLESTEROL LEVEL 161 MG/DL (<200); CHOLESTEROL RISK RATIO 4.472 (<5); CREATININE FOR GFR 0.97 MG/DL (0.70-1.30); GLOMERULAR FILTRATION RATE > 60.0 (>56); GLUCOSE, FASTING 125 MG/DL (70-100); HDL CHOLESTEROL 36 MG/DL (>40); LDL CHOLESTEROL 95 MG/DL (<100); NON-HDL-C 125 MG/DL; POTASSIUM SERUM 3.9 MEQ/L (3.5-5.1); SODIUM LEVEL 142 MEQ/L (136-145); TRIGLYCERIDES LEVEL 148 MG/DL (<150)
== END ==
LOC: M SFHCADAM 07:57
PROVIDERS: ATTEND Physician Assistant
DX: I10 Essential (primary) hypertension (principal); E78.2 Mixed hyperlipidemia; R73.9 Hyperglycemia, unspecified

== ENCOUNTER → 2022-06-27 | Outpatient (REF) | payer OTHER | LOC: M LABDRWAD 12:48 | PROVIDERS: ATTEND Urology | DX: R97.20 Elevated prostate specific antigen [PSA] (principal) ==

== ENCOUNTER → 2022-10-10 | Outpatient (REF) | payer OTHER ==
[2022-10-10 16:41] LABS: CREATININE, URINE 87.2 MG/DL; MAU/CREAT RATIO 35.5 MCG/MG (0.0-30.0)
[2022-10-10 16:46] LABS: ALBUMIN 4.3 G/DL (3.2-5.2); ALKALINE PHOSPHATASE 67 U/L (46-116); ALT/SGPT 97 U/L (7.0-40); AST/SGOT 64 U/L (<34); BILIRUBIN,TOTAL 1.4 MG/DL (0.3-1.2); BLOOD UREA NITROGEN 17 MG/DL (9-23); CALCIUM LEVEL 9.7 MG/DL (8.5-10.1); CARBON DIOXIDE LEVEL 30 MMOL/L (20-31); CHLORIDE LEVEL 103 MMOL/L (98-107); CHOLESTEROL LEVEL 103 MG/DL (<200); CHOLESTEROL RISK RATIO 3.13 (<5); CREATININE FOR GFR 0.97 MG/DL (0.70-1.30); GLOMERULAR FILTRATION RATE > 60.0 (>56); GLUCOSE, FASTING 105 MG/DL (60-100); HDL CHOLESTEROL 32.9 MG/DL (>40); LDL CHOLESTEROL 35.5 MG/DL (<100); NON-HDL-C 70.1 MG/DL; POTASSIUM SERUM 4.6 MMOL/L (3.5-5.1); SODIUM LEVEL 139 MMOL/L (136-145); THYROID STIMULATING HORMONE 1.953 uIU/ML (0.55-4.78); TOTAL 25(OH) VITAMIN D 45.4 NG/ML (20.0-100.0); TOTAL PROTEIN 7.2 G/DL (5.7-8.2); TRIGLYCERIDES LEVEL 173 MG/DL (<150)
== END ==
LOC: M SFHCADAM 11:20
PROVIDERS: ATTEND Physician Assistant Medical
DX: I10 Essential (primary) hypertension (principal); E55.9 Vitamin D deficiency, unspecified; R73.03 Prediabetes

== ENCOUNTER → 2022-10-17 | Outpatient (REF) | payer OTHER ==
[2022-10-17 16:51] LABS: HEMOGLOBIN A1c 6.1 % (4.0-6.0)
[2022-10-17 16:56] LABS: ALBUMIN 4.2 G/DL (3.2-5.2); ALKALINE PHOSPHATASE 71 U/L (46-116); ALT/SGPT 90 U/L (7.0-40); AST/SGOT 54 U/L (<34); BILIRUBIN,TOTAL 0.7 MG/DL (0.3-1.2); BLOOD UREA NITROGEN 16 MG/DL (9-23); CALCIUM LEVEL 9.6 MG/DL (8.5-10.1); CARBON DIOXIDE LEVEL 30 MMOL/L (20-31); CHLORIDE LEVEL 105 MMOL/L (98-107); CREATININE FOR GFR 0.94 MG/DL (0.70-1.30); GLOMERULAR FILTRATION RATE > 60.0 (>56); GLUCOSE, FASTING 166 MG/DL (60-100); POTASSIUM SERUM 4.4 MMOL/L (3.5-5.1); SODIUM LEVEL 140 MMOL/L (136-145); TOTAL PROTEIN 6.9 G/DL (5.7-8.2)
[2022-10-17 17:10] LABS: HEPATITIS B SURFACE ANTIGEN NEGATIVE (NEGATIVE)
[2022-10-17 17:30] LABS: HEPATITIS C VIRUS ABY INDEX 0.1 INDEX (<0.8)
[2022-10-17 17:31] LABS: HEPATITIS B CORE ANTIBODY IGM NEGATIVE (NEGATIVE)
== END ==
LOC: M SFHCADAM 14:30
PROVIDERS: ATTEND Physician Assistant Medical
DX: R79.89 Other specified abnormal findings of blood chemistry (principal); R73.03 Prediabetes

== ENCOUNTER → 2022-11-14 | Outpatient (CLI) | payer OTHER | LOC: M WHC 06:33 | PROVIDERS: ATTEND Physician Assistant Medical | DX: R79.89 Other specified abnormal findings of blood chemistry (principal); K76.0 Fatty (change of) liver, not elsewhere classified; K82.4 Cholesterolosis of gallbladder ==

== ENCOUNTER → 2022-12-05 | Outpatient (CLI) | payer OTHER | LOC: M SLEEP 20:00 | PROVIDERS: ATTEND Internal Medicine Pulmonary Disease | DX: R06.83 Snoring (principal); R06.89 Other abnormalities of breathing ==

== ENCOUNTER → 2022-12-27 | Outpatient (REF) | payer OTHER | LOC: M LABDRWAD 12:55 | PROVIDERS: ATTEND Urology | DX: R97.20 Elevated prostate specific antigen [PSA] (principal) ==

== ENCOUNTER → 2023-07-02 | Outpatient (REF) | payer OTHER | LOC: M LABDRWAD 12:37 | PROVIDERS: ATTEND Urology | DX: R97.20 Elevated prostate specific antigen [PSA] (principal) ==

== ENCOUNTER → 2023-09-24 | Outpatient (REF) | payer OTHER ==
[2023-09-24 14:46] LABS: TOTAL 25(OH) VITAMIN D 49.7 NG/ML (20.0-100.0)
[2023-09-24 14:48] LABS: ALBUMIN 3.9 G/DL (3.2-5.2); ALKALINE PHOSPHATASE 59 U/L (46-116); ALT/SGPT 63 U/L (7.0-40); AST/SGOT 42 U/L (<34); BILIRUBIN,TOTAL 1.3 MG/DL (0.3-1.2); BLOOD UREA NITROGEN 13 MG/DL (9-23); CALCIUM LEVEL 9.2 MG/DL (8.5-10.1); CARBON DIOXIDE LEVEL 30 MMOL/L (20-31); CHLORIDE LEVEL 106 MMOL/L (98-107); CHOLESTEROL LEVEL 96 MG/DL (<200); CREATININE FOR GFR 1.01 MG/DL (0.70-1.30); GLOMERULAR FILTRATION RATE > 60.0 (>56); GLUCOSE, FASTING 123 MG/DL (60-100); HDL CHOLESTEROL 25.9 MG/DL (>40); LDL CHOLESTEROL 30.5 MG/DL (<100); NON-HDL-C 70.1 MG/DL; POTASSIUM SERUM 4.2 MMOL/L (3.5-5.1); SODIUM LEVEL 142 MMOL/L (136-145); TOTAL PROTEIN 6.9 G/DL (5.7-8.2); TRIGLYCERIDES LEVEL 198 MG/DL (<150)
[2023-09-24 14:54] LABS: HEMOGLOBIN A1c 7.2 % (4.0-6.0)
== END ==
LOC: M SFHCADAM 08:32
PROVIDERS: ATTEND Physician Assistant Medical
DX: R73.03 Prediabetes (principal); I10 Essential (primary) hypertension; E78.2 Mixed hyperlipidemia

== ENCOUNTER → 2023-10-22 | Outpatient (REF) | payer OTHER ==
[2023-10-22 15:50] LABS: APPEARANCE, URINE CLEAR (CLEAR); BACTERIA, URINE AUTO NEGATIVE (NEGATIVE); BILIRUBIN, URINE AUTO NEGATIVE (NEGATIVE); BLOOD, URINE BLOOD NEGATIVE (NEGATIVE); COLOR, URINE STRAW (YELLOW); GLUCOSE, URINE (UA) AUTO NEGATIVE (NEGATIVE); KETONE, URINE AUTO NEGATIVE (NEGATIVE); LEUKOCYTE ESTERASE, URINE AUTO NEGATIVE (NEGATIVE); NITRITE, URINE AUTO NEGATIVE (NEGATIVE); PROTEIN, URINE AUTO NEGATIVE (NEGATIVE); RBC, URINE AUTO 0 /HPF (0-3); SPECIFIC GRAVITY URINE AUTO 1.003 (1.002-1.035); SQUAMOUS EPITHELIAL CELL UR AU 0 /HPF (0-6); UROBILINOGEN, URINE AUTO 0.2 mg/dL (0.0-2.0); WBC, URINE AUTO 0 /HPF (0-3)
[2023-10-22 15:52] LABS: HEMATOCRIT 43.9 % (42.0-52.0); MEAN CORPUSCULAR HEMOGLOBIN 30.1 pg (27.0-33.0); MEAN CORPUSCULAR HGB CONC 34.2 g/dl (32.0-36.5); PLATELET COUNT, AUTOMATED 164 10^3/uL (150-450); RED BLOOD COUNT 4.99 10^6/uL (4.30-6.10); WHITE BLOOD COUNT 7.3 10^3/uL (4.0-10.0)
[2023-10-22 16:26] LABS: BLOOD UREA NITROGEN 14 MG/DL (9-23); CALCIUM LEVEL 9.6 MG/DL (8.5-10.1); CARBON DIOXIDE LEVEL 28 MMOL/L (20-31); CHLORIDE LEVEL 104 MMOL/L (98-107); CREATININE FOR GFR 0.93 MG/DL (0.70-1.30); GLOMERULAR FILTRATION RATE > 60.0 (>56); GLUCOSE, FASTING 148 MG/DL (60-100); POTASSIUM SERUM 3.7 MMOL/L (3.5-5.1); SODIUM LEVEL 140 MMOL/L (136-145)
== END ==
LOC: M SFHCADAM 13:56
PROVIDERS: ATTEND Physician Assistant
DX: Z01.818 Encounter for other preprocedural examination (principal); I10 Essential (primary) hypertension; E78.2 Mixed hyperlipidemia

== ENCOUNTER 2023-11-12 19:32 | Emergency (ER) | payer OTHER ==
[~2023-11-12] VITALS: Ht 175.3 cm; Wt 102.3 kg
[2023-11-12 19:34] VITALS: BP 151/89; TEMP 97.8; O2SAT 97
[2023-11-12] MEDS ORDERED: DILT240C83 (19:42)
[2023-11-12] MEDS ORDERED: SIMV40TA20 (19:42)
[2023-11-12] MEDS ORDERED: HYDR-3490 (19:42)
[2023-11-12] MEDS ORDERED: LOSA100T46 (19:42)
[2023-11-12] MEDS ORDERED: FLON1SPR NARES (19:48)
[2023-11-12] MEDS ORDERED: OMEP1CAP73 PO (19:48)
[2023-11-12] MEDS: LIDOCAINE 2% 5ML JELLY UROJET TOP ONE (20:47)
[2023-11-12 20:53] LABS: BASO % 0.3 % (0.0-1.0); EOS % 0.3 % (0.0-3.0); HEMATOCRIT 42.1 % (42.0-52.0); HEMOGLOBIN 14.5 g/dl (13.5-17.5); LYMPH # 1.4 10^3/uL (1.5-5.0); LYMPH % 11.6 % (24.0-44.0); MEAN CORPUSCULAR HGB CONC 34.4 g/dl (32.0-36.5); MONO # 0.8 10^3/uL (0.0-0.8); MONO % 6.4 % (2.0-8.0); NEUTROPHILS # 9.5 10^3/uL (1.5-8.5); PLATELET COUNT, AUTOMATED 172 10^3/uL (150-450); RED BLOOD COUNT 4.84 10^6/uL (4.30-6.10); WHITE BLOOD COUNT 11.7 10^3/uL (4.0-10.0)
[2023-11-12 21:25] LABS: BLOOD UREA NITROGEN 15 MG/DL (9-23); CALCIUM LEVEL 9.3 MG/DL (8.5-10.1); CARBON DIOXIDE LEVEL 27 MMOL/L (20-31); CHLORIDE LEVEL 104 MMOL/L (98-107); CREATININE FOR GFR 0.92 MG/DL (0.70-1.30); GLOMERULAR FILTRATION RATE > 60.0 (>56); GLUCOSE, FASTING 145 MG/DL (60-100); POTASSIUM SERUM 3.7 MMOL/L (3.5-5.1); SODIUM LEVEL 138 MMOL/L (136-145)
== END 2023-11-12 23:17 | disposition home or self-care (01) ==
LOC: M ED 19:32
DX: R33.9 Retention of urine, unspecified (principal); N40.1 Benign prostatic hyperplasia with lower urinary tract symptoms; I10 Essential (primary) hypertension; E78.5 Hyperlipidemia, unspecified

== ENCOUNTER 2023-11-15 01:22 | Emergency (ER) | payer OTHER ==
[~2023-11-15] VITALS: Ht 175.3 cm; Wt 100.0 kg
[~2023-11-15 01:22] MED LIST: DILT240C83; FLON1SPR NARES; HYDR-3490; LOSA100T46; OMEP1CAP73 PO; SIMV40TA20
[2023-11-15 01:24] VITALS: BP 189/107; TEMP 97.6; O2SAT 94
== END 2023-11-15 05:35 | disposition home or self-care (01) ==
LOC: M ED 01:22
DX: T83.091A Other mechanical complication of indwelling urethral catheter, initial encounter (principal); I10 Essential (primary) hypertension; E78.5 Hyperlipidemia, unspecified; K21.9 Gastro-esophageal reflux disease without esophagitis; Z79.899 Other long term (current) drug therapy

== ENCOUNTER → 2023-12-03 | Outpatient (CLI) | payer OTHER | LOC: M RAD 09:19 | PROVIDERS: ATTEND Physician Assistant Medical | DX: R16.0 Hepatomegaly, not elsewhere classified (principal); K82.4 Cholesterolosis of gallbladder ==

== ENCOUNTER → 2024-01-14 | Outpatient (CLI) | payer OTHER ==
[~2024-01-14] MED LIST changes: +ISOVUE-300 61% 100ML VIAL As Ordered ONE; +LIDOCAINE 1% MDV 20ML VIAL As Ordered ONE; +TRIAMCINOLONE ACETONIDE SUSP 40MG/ML 1ML VIAL As Ordered ONE
== END ==
LOC: M RAD 14:26
PROVIDERS: ATTEND Orthopaedic Surgery
DX: M16.12 Unilateral primary osteoarthritis, left hip (principal)
CPT/HCPCS: 20610; 77002; J3301; Q9967

== ENCOUNTER → 2024-03-04 | Outpatient (CLI) | payer OTHER ==
[~2024-03-04] MED LIST changes: -ISOVUE-300 61% 100ML VIAL As Ordered ONE; -LIDOCAINE 1% MDV 20ML VIAL As Ordered ONE; -TRIAMCINOLONE ACETONIDE SUSP 40MG/ML 1ML VIAL As Ordered ONE
== END ==
LOC: M PLARAD 09:11
PROVIDERS: ATTEND Physician Assistant Medical
DX: K83.8 Other specified diseases of biliary tract (principal); K80.20 Calculus of gallbladder without cholecystitis without obstruction; K76.0 Fatty (change of) liver, not elsewhere classified; R16.0 Hepatomegaly, not elsewhere classified

== ENCOUNTER → 2024-03-30 | Outpatient (REF) | payer OTHER ==
[2024-03-30 14:53] LABS: ALKALINE PHOSPHATASE 59 U/L (46-116); ALT/SGPT 77 U/L (7.0-40); AST/SGOT 47 U/L (<34); BILIRUBIN,TOTAL 0.9 MG/DL (0.3-1.2); BLOOD UREA NITROGEN 18 MG/DL (9-23); CALCIUM LEVEL 9.5 MG/DL (8.3-10.6); CARBON DIOXIDE LEVEL 29 MMOL/L (20-31); CHLORIDE LEVEL 105 MMOL/L (98-107); CHOLESTEROL LEVEL 103 MG/DL (<200); CHOLESTEROL RISK RATIO 3.45 (<5); CREATININE FOR GFR 0.98 MG/DL (0.70-1.30); GLOMERULAR FILTRATION RATE > 60.0 (>49); GLUCOSE, FASTING 138 MG/DL (74-106); HDL CHOLESTEROL 29.8 MG/DL (>40); NON-HDL-C 73.2 MG/DL; POTASSIUM SERUM 3.6 MMOL/L (3.5-5.1); SODIUM LEVEL 141 MMOL/L (136-145); TOTAL PROTEIN 7.1 G/DL (5.7-8.2); TRIGLYCERIDES LEVEL 171 MG/DL (<150)
[2024-03-30 14:57] LABS: THYROID STIMULATING HORMONE 4.783 uIU/ML (0.55-4.78); TOTAL 25(OH) VITAMIN D 57.9 NG/ML (20.0-100.0)
[2024-03-30 15:08] LABS: HEMOGLOBIN A1c 7.1 % (4.0-6.0)
== END ==
LOC: M SFHCADAM 08:15
PROVIDERS: ATTEND Physician Assistant Medical
DX: E11.65 Type 2 diabetes mellitus with hyperglycemia (principal); I10 Essential (primary) hypertension; E78.2 Mixed hyperlipidemia; E55.9 Vitamin D deficiency, unspecified; Z78.9 Other specified health status

== ENCOUNTER → 2024-05-03 | Outpatient (REF) | payer OTHER ==
[2024-05-03 15:51] LABS: THYROID STIMULATING HORMONE 1.881 uIU/ML (0.55-4.78)
[2024-05-03 15:52] LABS: FREE T4 1.09 NG/DL (0.89-1.76)
== END ==
LOC: M SFHCADAM 10:39
PROVIDERS: ATTEND Physician Assistant Medical
DX: R79.89 Other specified abnormal findings of blood chemistry (principal)

== ENCOUNTER → 2024-06-01 | Outpatient (REF) | payer OTHER | LOC: M LABDRWAD 13:37 | PROVIDERS: ATTEND Urology | DX: R97.20 Elevated prostate specific antigen [PSA] (principal) ==

== ENCOUNTER → 2024-06-21 | Outpatient (REF) | payer OTHER | LOC: M SFHCADAM 17:05 | PROVIDERS: ATTEND Family Medicine | DX: R05.1 Acute cough (principal) ==

== ENCOUNTER → 2024-10-07 | Outpatient (REF) | payer OTHER ==
[2024-10-07 15:15] LABS: BASO % 0.6 % (0.0-1.0); EOS # 0.2 10^3/uL (0.0-0.5); EOS % 3.3 % (0.0-3.0); HEMATOCRIT 45.6 % (42.0-52.0); HEMOGLOBIN 15.1 g/dl (13.5-17.5); LYMPH # 2.5 10^3/uL (1.5-5.0); MEAN CORPUSCULAR HEMOGLOBIN 29.3 pg (27.0-33.0); MEAN CORPUSCULAR HGB CONC 33.1 g/dl (32.0-36.5); MEAN CORPUSCULAR VOLUME 88.4 fl (80.0-96.0); MONO # 0.7 10^3/uL (0.0-0.8); MONO % 9.2 % (2.0-8.0); NEUTROPHILS # 3.8 10^3/uL (1.5-8.5); NEUTROPHILS % 52.6 % (36.0-66.0); PLATELET COUNT, AUTOMATED 168 10^3/uL (150-450); RED BLOOD COUNT 5.16 10^6/uL (4.30-6.10); WHITE BLOOD COUNT 7.2 10^3/uL (4.0-10.0)
[2024-10-07 15:33] LABS: HEMOGLOBIN A1c 8.1 % (4.0-6.0)
[2024-10-07 15:45] LABS: ALKALINE PHOSPHATASE 59 U/L (40-129); ALT/SGPT 71 U/L (7.0-40); AST/SGOT 48 U/L (<34); BLOOD UREA NITROGEN 13 MG/DL (9-23); CALCIUM LEVEL 9.5 MG/DL (8.3-10.6); CARBON DIOXIDE LEVEL 31 MMOL/L (20-31); CHLORIDE LEVEL 101 MMOL/L (98-107); CHOLESTEROL LEVEL 116 MG/DL (<200); CHOLESTEROL RISK RATIO 3.29 (<5); CREATININE FOR GFR 0.92 MG/DL (0.70-1.30); GLOMERULAR FILTRATION RATE > 60.0 (>49); GLUCOSE, FASTING 195 MG/DL (74-106); HDL CHOLESTEROL 35.2 MG/DL (>40); LDL CHOLESTEROL 37.4 MG/DL (<100); NON-HDL-C 80.8 MG/DL; POTASSIUM SERUM 3.8 MMOL/L (3.5-5.1); SODIUM LEVEL 141 MMOL/L (136-145); TOTAL PROTEIN 7.4 G/DL (5.7-8.2); TRIGLYCERIDES LEVEL 217 MG/DL (<150)
[2024-10-07 15:46] LABS: THYROID STIMULATING HORMONE 3.172 uIU/ML (0.55-4.78)
== END ==
LOC: M SFHCADAM 08:16
PROVIDERS: ATTEND Physician Assistant Medical
DX: E11.65 Type 2 diabetes mellitus with hyperglycemia (principal); E78.2 Mixed hyperlipidemia; E55.9 Vitamin D deficiency, unspecified; K76.0 Fatty (change of) liver, not elsewhere classified; R79.89 Other specified abnormal findings of blood chemistry

== ENCOUNTER → 2024-11-30 | Outpatient (REF) | payer OTHER | LOC: M LABDRWAD 13:38 | PROVIDERS: ATTEND Urology | DX: R97.20 Elevated prostate specific antigen [PSA] (principal) ==

== ENCOUNTER → 2025-02-15 | Outpatient (CLI) | payer OTHER ==
[~2025-02-15] MED LIST changes: +METF500T13 PO
[2025-02-15 13:25] LABS: BASO # 0.0 10^3/uL (0.0-0.2); BASO % 0.6 % (0.0-1.0); EOS # 0.2 10^3/uL (0.0-0.5); EOS % 2.4 % (0.0-3.0); LYMPH # 1.4 10^3/uL (1.5-5.0); LYMPH % 19.0 % (24.0-44.0); MONO # 0.6 10^3/uL (0.0-0.8); MONO % 8.1 % (2.0-8.0); NEUTROPHILS # 5.0 10^3/uL (1.5-8.5); NEUTROPHILS % 69.5 % (36.0-66.0); PLATELET COUNT, AUTOMATED 206 10^3/uL (150-450)
[2025-02-15 13:27] LABS: CALCIUM LEVEL 9.1 MG/DL (8.3-10.6); CARBON DIOXIDE LEVEL 30.0 MMOL/L (20-31); CHLORIDE LEVEL 102.0 MMOL/L (98-107); CREATININE FOR GFR 1.0 MG/DL (0.70-1.30); GLOMERULAR FILTRATION RATE 85.6 (>49); POTASSIUM SERUM 4.1 MMOL/L (3.5-5.1); SODIUM LEVEL 141.0 MMOL/L (136-145)
== END ==
LOC: M PLALAB 10:53
PROVIDERS: ATTEND Student in an Organized Health Care Education/Training Program
DX: M79.10 Myalgia, unspecified site (principal)

== ENCOUNTER → 2025-04-04 | Outpatient (REF) | payer OTHER ==
[2025-04-04 14:03] LABS: ESTIMATED AVERAGE GLUCOSE 171.0 MG/DL (60-110)
[2025-04-04 14:16] LABS: CREATININE, URINE 191.1 MG/DL
[2025-04-04 14:17] LABS: MALB URINE SIEMENS 34.0 MG/L; MAU/CREAT RATIO 17.7 MCG/MG (0.0-30.0)
[2025-04-04 14:19] LABS: ALT/SGPT 26.0 U/L (7.0-40); AST/SGOT 25.0 U/L (<34); CALCIUM LEVEL 9.3 MG/DL (8.3-10.6); CARBON DIOXIDE LEVEL 30.0 MMOL/L (20-31); CHLORIDE LEVEL 101.0 MMOL/L (98-107); CHOLESTEROL LEVEL 87.0 MG/DL (<200); CHOLESTEROL RISK RATIO 4.26 (<5); CREATININE FOR GFR 1.02 MG/DL (0.70-1.30); GLOMERULAR FILTRATION RATE 83.6 (>49); LDL CHOLESTEROL 32.0 MG/DL (<100); NON-HDL-C 66.6 MG/DL; POTASSIUM SERUM 4.2 MMOL/L (3.5-5.1); SODIUM LEVEL 141.0 MMOL/L (136-145); TRIGLYCERIDES LEVEL 173.0 MG/DL (<150)
== END ==
LOC: M SFHCADAM 09:10
PROVIDERS: ATTEND Physician Assistant Medical
DX: E11.65 Type 2 diabetes mellitus with hyperglycemia (principal); E78.2 Mixed hyperlipidemia; E55.9 Vitamin D deficiency, unspecified; K76.0 Fatty (change of) liver, not elsewhere classified; R79.89 Other specified abnormal findings of blood chemistry

== ENCOUNTER → 2025-04-04 | Outpatient (REF) | payer OTHER | LOC: M LABDRWAD 14:20 → M LAB REF 14:20 | PROVIDERS: ATTEND Urology | DX: R97.20 Elevated prostate specific antigen [PSA] (principal) ==

== ENCOUNTER → 2025-04-18 | Outpatient (CLI) | payer OTHER ==
[~2025-04-18] MED LIST changes: +ISOVUE-300 61% 100 ML VIAL As Ordered ONE; +LIDOCAINE 1% MDV 20 ML VIAL As Ordered ONE; +methylPREDNISolone SUSP 40 MG/ML 1 ML VIAL As Ordered ONE
== END ==
LOC: M RAD 13:13
PROVIDERS: ATTEND Physician Assistant Surgical
DX: M16.12 Unilateral primary osteoarthritis, left hip (principal)
CPT/HCPCS: 20610; 77002; J1010; Q9967

== ENCOUNTER → 2025-06-14 | Outpatient (REF) | payer OTHER ==
[~2025-06-14] MED LIST changes: -ISOVUE-300 61% 100 ML VIAL As Ordered ONE; -LIDOCAINE 1% MDV 20 ML VIAL As Ordered ONE; -methylPREDNISolone SUSP 40 MG/ML 1 ML VIAL As Ordered ONE
== END ==
LOC: M SFHCDERM 17:33
PROVIDERS: ATTEND Dermatology
DX: L82.1 Other seborrheic keratosis (principal); L90.8 Other atrophic disorders of skin

== ENCOUNTER → 2025-06-28 | Outpatient (REF) | payer OTHER ==
[2025-06-28 13:12] LABS: PLATELET COUNT, AUTOMATED 132 10^3/uL (150-450)
[2025-06-28 13:27] LABS: ESTIMATED AVERAGE GLUCOSE 160.0 MG/DL (60-110)
[2025-06-28 13:47] LABS: ALT/SGPT 31.0 U/L (7.0-40); AST/SGOT 27.0 U/L (<34); CALCIUM LEVEL 9.2 MG/DL (8.3-10.6); CARBON DIOXIDE LEVEL 30.0 MMOL/L (20-31); CHLORIDE LEVEL 104.0 MMOL/L (98-107); CREATININE FOR GFR 1.01 MG/DL (0.70-1.30); FREE T4 1.07 NG/DL (0.89-1.76); GLOMERULAR FILTRATION RATE 84.6 (>49); IRON (FE) 95.0 UG/DL (65-175); PERCENT SATURATION 29.7 % (19.7-50.0); POTASSIUM SERUM 4.3 MMOL/L (3.5-5.1); SODIUM LEVEL 144.0 MMOL/L (136-145); TOTAL 25(OH) VITAMIN D 51.9 NG/ML (20.0-100.0)
[2025-06-28 13:48] LABS: VITAMIN B12 LEVEL 564.0 PG/ML (211-911)
== END ==
LOC: M SFHCADAM 08:34
PROVIDERS: ATTEND Physician Assistant Medical
DX: E11.65 Type 2 diabetes mellitus with hyperglycemia (principal); K75.81 Nonalcoholic steatohepatitis (NASH); I10 Essential (primary) hypertension; E78.2 Mixed hyperlipidemia; E55.9 Vitamin D deficiency, unspecified